=== PATIENT | male | born 1965 | race African-American/Black ===

== ENCOUNTER 2017-01-01 07:21 | Emergency (ER) | payer BC, MEDICAID ==
[~2017-01-01] VITALS: Ht 193 cm; Wt 117.9 kg
[~2017-01-01 07:21] MED LIST: GLIP-116; LOSA50TA6; METF-372; NAPR500T4
[2017-01-01 07:29] VITALS: BP 141/66
[2017-01-01] MEDS ORDERED: KETOROLAC TROMETH 60MG/2ML VIAL IM ONE (08:00)
== END 2017-01-01 08:32 | disposition home or self-care (01) ==
LOC: ER 07:21
DX: M23.91 Unspecified internal derangement of right knee (principal); G89.29 Other chronic pain; E11.9 Type 2 diabetes mellitus without complications; I10 Essential (primary) hypertension; Z88.8 Allergy status to other drugs, medicaments and biological substances
CPT/HCPCS: 96372; 99283; J1885

== ENCOUNTER 2020-08-15 19:26 | Emergency (ER) | payer MEDICAID, OTHER ==
[~2020-08-15] VITALS: Ht 193 cm; Wt 122.5 kg
[~2020-08-15 19:26] MED LIST changes: -GLIP-116; +GLIP10TA9; +LOSA-69; -LOSA50TA6; +NAPR500T31; -NAPR500T4
[2020-08-15] MEDS ORDERED: SODIUM CHLORIDE 0.9% 1,000 ML IV ONE (19:45)
[2020-08-15] MEDS ORDERED: metFORMIN HYDROCHLORIDE 500 MG TAB PO ONE (19:45)
[2020-08-15] MEDS ORDERED: glipiZIDE 5 MG TAB PO ONE (19:45)
[2020-08-15 19:50] LABS: Basophils # (auto) 0.1 10 ^3/uL (0-0.2); Basophils % (auto) 1.3 % (0.0-2.0); Eosinophils # (auto) 0.1 10 ^3/uL (0-0.8); Eosinophils % (auto) 1.9 % (0.0-7.0); Hematocrit 41.1 % (41.0-53.0); Hemoglobin 14.2 g/dL (13.5-17.5); Lymphocytes # (auto) 2.2 10 ^3/uL (0.4-5.4); Lymphocytes % (auto) 38.5 % (10.0-50.0); Mean Corpuscular Hemoglobin 31.7 pg (28.0-32.0); Mean Corpuscular Hgb Conc. 34.7 g/dL (32.0-36.0); Mean Corpuscular Volume 91.4 fL (80.0-100.0); Monocytes # (auto) 0.3 10 ^3/uL (0-1.3); Monocytes % (auto) 5.7 % (0.0-12.0); Neutrophils # (auto) 2.9 10 ^3/uL (1.6-8.6); Neutrophils % (auto) 52.6 % (37.0-80.0); Nucleated Red Blood Cells % 0.1 %; Platelet Count (auto) 290 10^3/uL (140-450); Red Cell Distribution Width 12.9 % (11.8-14.3); White Blood Cell 5.6 10^3/uL (4.4-10.8)
[2020-08-15 20:15] LABS: Albumin 3.7 g/dL (3.4-5.0); Calcium 9.2 mg/dL (8.5-10.1); Potassium 4.8 mmol/L (3.5-5.1)
[2020-08-15 20:17] LABS: Bilirubin, Total 0.2 mg/dL (0.2-1.0); Total Protein 8.4 g/dL (6.4-8.2)
[2020-08-15] MEDS ORDERED: InsuLIN REG 1unit/0.01ml Soln (100units/ml) SC ONE (21:15)
[2020-08-15 22:24] VITALS: BP 133/85
== END 2020-08-15 22:25 | disposition home or self-care (01) ==
LOC: ER 19:26
DX: E11.65 Type 2 diabetes mellitus with hyperglycemia (principal); I10 Essential (primary) hypertension; Z79.899 Other long term (current) drug therapy; Z88.8 Allergy status to other drugs, medicaments and biological substances; Z91.14 Patient's other noncompliance with medication regimen
CPT/HCPCS: 36415; 80053; 82010; 85025; 96360; 96361; 96372; 99283; J1815

== ENCOUNTER 2020-11-03 02:32 | Emergency (ER) | payer OTHER ==
[~2020-11-03] VITALS: Ht 193 cm; Wt 127.0 kg
[2020-11-03] MEDS ORDERED: SODIUM CHLORIDE 0.9% 1,000 ML IV ONE (04:15)
[2020-11-03] MEDS ORDERED: hydrALAZINE HCL 20 MG/ML VL IV ONE (04:45)
[2020-11-03 04:47] LABS: Basophils # (auto) 0.1 10 ^3/uL (0-0.2); Eosinophils # (auto) 0.1 10 ^3/uL (0-0.8); Eosinophils % (auto) 1.3 % (0.0-7.0); Hematocrit 41.9 % (41.0-53.0); Hemoglobin 14.2 g/dL (13.5-17.5); Lymphocytes # (auto) 1.5 10 ^3/uL (0.4-5.4); Lymphocytes % (auto) 21.1 % (10.0-50.0); Mean Corpuscular Hemoglobin 30.9 pg (28.0-32.0); Mean Corpuscular Hgb Conc. 33.9 g/dL (32.0-36.0); Monocytes # (auto) 0.4 10 ^3/uL (0-1.3); Monocytes % (auto) 5.8 % (0.0-12.0); Neutrophils # (auto) 5.1 10 ^3/uL (1.6-8.6); Neutrophils % (auto) 70.8 % (37.0-80.0); Nucleated Red Blood Cells % 0.1 %; Red Cell Distribution Width 13.1 % (11.8-14.3); White Blood Cell 7.1 10^3/uL (4.4-10.8)
[2020-11-03 04:56] VITALS: BP 123/96
[2020-11-03 05:11] LABS: Alanine Aminotransferase 112 U/L (16-61); Albumin 4.1 g/dL (3.4-5.0); Anion Gap 10 (5-15); Aspartate Aminotransferase 121 U/L (15-37); BUN/Creatinine Ratio 12.9; Blood Urea Nitrogen 16 mg/dL (7-18); Carbon Dioxide 23 mmol/L (21-32); Chloride 103 mmol/L (98-107); GFR African American 78 mL/min; GFR Non-African American 64 mL/min; Glucose 375 mg/dL (74-106); Sodium 136 mmol/L (136-145)
[2020-11-03 05:15] LABS: Alkaline Phosphatase 84 U/L (45-117); Bilirubin, Total 0.6 mg/dL (0.2-1.0); Total Protein 8.5 g/dL (6.4-8.2)
== END 2020-11-03 07:00 | disposition admitted as inpatient to this hospital (09) ==
LOC: ER 02:36
DX: I10 Essential (primary) hypertension (principal); E11.65 Type 2 diabetes mellitus with hyperglycemia; Z79.899 Other long term (current) drug therapy; Z88.8 Allergy status to other drugs, medicaments and biological substances
CPT/HCPCS: 36415; 71045; 80053; 82962; 83880; 84484; 85025; 93005; 96360; 99285; J0360; J7030